=== PATIENT | female | born 1960 | race Caucasian/White ===

== ENCOUNTER → 2020-05-15 | Outpatient (CLI) | payer MEDICARE, MEDICAID ==
[~2020-05-15] MED LIST: HYDR200T5 PO; MV-M1TAB7 PO; OMEP40CA45 PO; OXYC-325 PO; OXYC5CAP PO; PRED2.5T PO; UMEC1DIS IH; UPAD15TA PO; VENTOLIN HFA18 GM INH
[2020-05-15 13:12] LABS: BASO % 0 % (0-3); EOS # 0.1 x10^3/uL (0.0-0.7); EOS % 1 % (0-3); HEMATOCRIT 38.6 % (36.0-47.0); HEMOGLOBIN 13.5 g/dL (12.0-15.5); LYMPH # 1.1 x10^3/uL (1.0-4.8); LYMPH % 13 % (24-48); MEAN CORPUSCULAR HEMOGLOBIN 30 pg (25-35); MEAN CORPUSCULAR HGB CONC 35 g/dL (31-37); MEAN CORPUSCULAR VOLUME 85 fL (79-100); MONO # 0.6 x10^3/uL (0.0-1.1); MONO % 8 % (0-9); NEUT # 6.2 x10^3/uL (1.8-7.7); NEUT % 77 % (31-73); PLATELET COUNT 225 x10^3/uL (140-400); RED BLOOD COUNT 4.56 x10^6/uL (3.50-5.40); RED CELL DISTRIBUTION WIDTH 15.3 % (11.5-14.5)
[2020-05-15 13:28] LABS: ALBUMIN 3.8 g/dL (3.4-5.0); ALBUMIN/GLOBULIN RATIO 1.3 (1.0-1.7); CALCIUM 8.6 mg/dL (8.5-10.1); CREATININE 0.9 mg/dL (0.6-1.0); GFR 63.7; TOTAL BILIRUBIN 0.6 mg/dL (0.2-1.0); TOTAL PROTEIN 6.8 g/dL (6.4-8.2)
== END | disposition home or self-care (01) ==
LOC: SURGPAT 12:37
PROVIDERS: ATTEND Surgery
DX: Z01.812 Encounter for preprocedural laboratory examination (principal); Z20.828 Contact with and (suspected) exposure to other viral communicable diseases; K80.10 Calculus of gallbladder with chronic cholecystitis without obstruction
CPT/HCPCS: 80053; 85025; U0003

== ENCOUNTER 2020-05-21 08:51 | Day surgery (SDC) | payer MEDICARE, MEDICAID ==
[~2020-05-21] VITALS: Ht 157.5 cm; Wt 116.5 kg
[~2020-05-21 08:51] MED LIST changes: +BUPIVACAINE-EPI 0.25%-1:200000 MPF 30 ML VIAL. ONE; +DEXAMETHASONE SOD PHOS 4 MG/ML VIAL ONE; +HYDROmorphone 2 MG/ML VIAL IV PRN; +IOHEXOL 300 MG/ML 50 ML VIAL. ONE; +IV RINGERS,LACTATED 1000ML 1,000 ML IV SCH; +LIDOCAINE 1% PF 2 ML VIAL. ID PRN; +LIDOCAINE 2% PF 5 ML VIAL. ONE; +ONDANSETRON PF 4 MG/2 ML VIAL. IV PRN; +ONDANSETRON PF 4 MG/2 ML VIAL. ONE; -OXYC-325 PO; +PROCHLORPERAZINE 10 MG/2 ML VIAL. IV PRN; +PROPOFOL 10 MG/ML (20ML) VIAL. IV ONE; +ROCURONIUM 50 MG/5 ML VIAL. ONE; +SURGICEL HEMOSTAT 4X8 EACH. ONE; +fentaNYL PF VIAL 100 MCG/2 ML VIAL IV PRN; +fentaNYL PF VIAL 100 MCG/2 ML VIAL ONE
[2020-05-21] MEDS ORDERED: fentaNYL PF VIAL 100 MCG/2 ML VIAL ONE ×2 (09:11→10:47)
[2020-05-21] MEDS ORDERED: MIDAZOLAM HCL/PF 2 MG/2 ML VIAL. ONE (09:11)
[2020-05-21] MEDS ORDERED: ACETAMINOPHEN 500 MG TABLET PO ONE (09:30)
[2020-05-21] MEDS ORDERED: GLYCOPYRROLATE 1 MG/5 ML VIAL. ONE (10:06)
[2020-05-21] MEDS ORDERED: NEOSTIGMINE METHYLSULFATE 5 MG/5 ML SYRINGE. ONE (10:08)
[2020-05-21] MEDS ORDERED: SEVOFLURANE 61 TO 120 MINUTES. IH ONE (10:18)
--- NOTE | 2020-05-21 10:21 | PDOC4 ---
Operative Note Operative Note Date: May 212019 at 1018 Preoperative diagnosis: Chronic cholecystitis cholelithiasis Postoperative diagnosis: Same Procedure: Laparoscopic cholecystectomy Surgeon: Sathish Specimen: Gallbladder Dictation: Patient is 59-year-old female is had right upper quadrant abdominal pain postprandial nausea and CT scan showing cholelithiasis. Procedure of laparoscopic cholecystectomy was explained to the patient detail risk-benefit were also discussed including bleeding infection injury to intra-abdominal contents possibly necessitating further or open operations alternatives to this procedure also discussed with patient who seemed to understand and gave both verbal and written consent to have the procedure performed. Patient was taken to the operating room placed in the supine position general anesthesia was initiated once patient was sleeping intubated her abdomen was prepped and draped usual sterile fashion using ChloraPrep. An area just below the umbilicus was injected with quarter percent Marcaine with epinephrine incision was made 11 blade scalpel and a varies needle was placed within the abdomen creating pneumoperitoneum once this was complete 12 mm port was placed and a 5 mm camera was placed within the abdomen which was inspected no other abnormalities were noted. 5 mm port was placed in the epigastrium a 5 mm port was placed in the right midabdomen and a 5 mm port was placed in the right lateral abdomen. The dome of the gallbladder is grasped retracted cephalad the infundibulum of the gallbladder is grasped retracted laterally exposing the triangle. The adherent tissues of the triangle were taken down exposing the cystic duct and cystic artery both were doubly clipped and transected the gallbladder is taken off the liver with hook electrocautery placed in Endo Catch bag removed and the umbilicus right upper quadrant was irrigated and suctioned dry hemostasis deemed be appropriate the pneumoperitoneum was reduced all ports were removed the fas cial defect at the umbilicus was closed with a [id number] 0 Vicryl suture and the skin was reapproximated all port sites for subcuticular Monocryl Mastisol Steri-Strips and island were applied patient was awakened and extubated in the operating room taken to recovery in stable condition all sponge instrument needle counts listed as correct estimated blood loss 20 mL YONNY DOUGLAS MD May 21, 2020 10:21
--- NOTE | 2020-05-21 10:23 | DISCH ---
DISCHARGE INSTRUCTIONS Condition on Discharge Condition on Discharge: Stable Activity After Discharge Activity Instructions for Disc: Avoid exertion Other activity instructions: No lifting more than 20 pounds for 2 weeks Diet after Discharge Diet after Discharge: Low Fat Wound Incision Care Other wound/incision instructi: May shower in 24 hours Contacting the after DC Call your doctor for: If your condition worsens Follow-Up Follow up with: Dr. Douglas in 2 weeks YONNY DOUGLAS MD May 21, 2020 10:23
[2020-05-21] MEDS ORDERED: DEXAMETHASONE SOD PHOS 4 MG/ML VIAL ONE (10:45)
[2020-05-21] MEDS: fentaNYL PF VIAL 100 MCG/2 ML VIAL IV PRN ×2 (10:50→11:17)
[2020-05-21] MEDS ORDERED: OXYC-325 PO (10:51)
[2020-05-21] MEDS ORDERED: MORPHINE SULFATE 2 MG/ML VIAL. ONE (11:08)
[2020-05-21] MEDS: MORPHINE SULFATE 2 MG/ML VIAL. IV PRN ×2 (11:18→11:33)
[2020-05-21] MEDS ORDERED: oxyCODONE/APAP 5/325 1 TAB TABLET ONE (11:31)
[2020-05-21] MEDS ORDERED: oxyCODONE/APAP 5/325 1 TAB TABLET PO ONE (11:45)
[2020-05-21 12:30] VITALS: BP 121/58
--- NOTE | 2020-05-22 15:08 | PATHOLOGY ---
[facility] Accession Number: [id number] . 01 Material submitted: . gallbladder - GALLBLADDER . 01 Clinical history: . Chronic cholecystitis . 02 Diagnosis: Gallbladder, laparoscopic cholecystectomy: - Cholelithiasis. - Cholesterolosis. - Chronic cholecystitis. - Focal lipogranulomata of gallbladder neck lymph node. (JPM:dena; 05/22/2020) QMS 05/22/2020 1307 Local . 02 Comment: There is no evidence of malignancy. (JPM:dena; 05/22/2020) . 02 Electronically signed: . Phil Pal MD, Pathologist NPI- [id number] . 01 Gross description: . The specimen is received in formalin labeled "[place], Geri, gallbladder" and consists of an intact green gallbladder measuring 7.1 x 4.2 x 3.1 cm. The margin is inked black. Opening reveals a lumen filled with viscous bile and multiple multifaceted yellow calculi measuring up to 1.1 cm. The mucosa is green with yellow stippling and an average wall thickness of 0.1 cm. No masses are identified. Adjacent the gallbladder neck is a lymph node measuring 0.6 cm. Pals Specialist sections are submitted in A1. (SDY; 05/21/2020) SYU/SYU 05/22/2020 1305 Local . 02 Pathologist provided ICD-10: K80.10, K82.4 . 02 CPT . 251882 Specimen Comment: A courtesy copy of this report has been sent to [phone], [phone] Specimen Comment: [id number] Specimen Comment: Report sent to / DR OWENS Performed at: [address], [place], [place] [id number] MD Turner Obrien MD Phone: [phone] Performed at: [address] [id number] MD Phil Pal MD Phone: [phone]
== END 2020-05-21 12:46 | disposition home or self-care (01) ==
LOC: SURG 08:51
PROVIDERS: ATTEND Surgery
DX: K80.10 Calculus of gallbladder with chronic cholecystitis without obstruction (principal); G43.909 Migraine, unspecified, not intractable, without status migrainosus; J45.909 Unspecified asthma, uncomplicated; Z87.01 Personal history of pneumonia (recurrent); K21.9 Gastro-esophageal reflux disease without esophagitis; Z87.891 Personal history of nicotine dependence; Z96.652 Presence of left artificial knee joint; Z90.710 Acquired absence of both cervix and uterus
CPT/HCPCS: 47562; A7015; J1100; J1956; J2250; J2270; J2704; J2710; J3010; J3490; J7030; J2405; Q9967